=== PATIENT | male | born 1975 | race Two or more races ===

== ENCOUNTER 2019-03-31 11:40 | Emergency (ER) | payer MEDICAID ==
[~2019-03-31] VITALS: Ht 185.4 cm; Wt 89.8 kg
[2019-03-31 12:08] VITALS: BP 139/94; Ht 185.4 cm; Wt 89.8 kg
== END 2019-03-31 14:35 | disposition home or self-care (01) ==
LOC: ED 11:40
DX: S83.8X2A Sprain of other specified parts of left knee, initial encounter (principal); M25.462 Effusion, left knee; W01.0XXA Fall on same level from slipping, tripping and stumbling without subsequent striking against object, initial encounter; Y93.89 Activity, other specified; Y92.89 Other specified places as the place of occurrence of the external cause; Y99.8 Other external cause status